=== PATIENT | female | born 1935 | race Caucasian/White ===

== ENCOUNTER 2018-05-15 19:30 | Outpatient (CLI) | payer MEDICARE, BC | END 2018-05-15 19:31 | disposition home or self-care (01) | LOC: SLEEPLAB 19:30 | PROVIDERS: ATTEND Internal Medicine | DX: G47.33 Obstructive sleep apnea (adult) (pediatric) (principal); I50.9 Heart failure, unspecified; E66.9 Obesity, unspecified; Z68.30 Body mass index [BMI] 30.0-30.9, adult | CPT/HCPCS: 95811 ==

== ENCOUNTER 2018-06-22 23:30 | Inpatient (IN) | payer MEDICARE, BC ==
[2018-06-23 00:54] LABS: #Basophils 0.1 thou/uL (0.0-0.2); #Eosinphils 0.1 thou/uL (0.0-0.7); #Lymphocytes 1.1 thou/uL (1.20-3.40); #Monocytes 0.6 thou/uL (0.11-0.59); #Neutrophils 8.6 thou/uL (1.40-6.50); %Basophils 0.6 % (0.0-1.0); %Eosinophils 1.2 % (0.0-10.0); %Lymphocytes 10.3 % (21.0-51.0); %Monocytes 6.1 % (0.0-10.0); %Neutrophils 81.8 % (42.0-75.0); Hemoglobin 14.5 g/dL (12.0-16.0); Mean Corpuscular HGB CONC 31.9 g/dL (32.0-36.0); Mean Corpuscular Hemoglobin 31.8 pg (27.0-31.0); Mean Corpuscular Volume 99.8 fL (78.0-98.0); Mean Platelet Volume 7.8 fL (7.4-10.4); Platelet Count 182 thou/uL (130-400); RBC Distribution Width 12.8 % (11.5-14.5); Red Blood Cell (RBC) Count 4.56 mill/uL (4.20-5.40); White Blood Cell (WBC) Count 10.5 thou/uL (4.8-10.8)
[2018-06-23 01:15] LABS: ALT (SGPT) 20 U/L (8-55); AST (SGOT) 25 U/L (5-34); Albumin 3.4 g/dL (3.4-4.8); Alkaline Phosphatase 126 U/L (40-150); Anion Gap 13 mmol/L (10-20); BUN (Urea Nitrogen) 25 mg/dL (9.8-20.1); Bilirubin, Total Less than 0.2 mg/dL (0.2-1.2); Calc. Creatinine Clearance 0 mL/min (70-130); Calcium 9.7 mg/dL (7.8-10.44); Carbon Dioxide 28 mmol/L (23-31); Chloride 104 mmol/L (98-107); Estimated GFR-MDRD 59; Glucose 157 mg/dL (83-110); Potassium 3.9 mmol/L (3.5-5.1); Protein, Total 6.4 g/dL (6.0-8.3); Sodium 141 mmol/L (136-145)
[2018-06-23 01:27] LABS: CKMB 0.6 ng/mL (0-6.6); Troponin I 0.022 ng/mL (< 0.028)
[2018-06-23] MEDS ORDERED: Aspirin 325 MG TAB ONE (03:00)
[2018-06-23 04:25] LABS: Troponin I 0.029 ng/mL (< 0.028)
[2018-06-23] MEDS ORDERED: Ondansetron ODT 4 MG TAB SL PRN (04:45)
[2018-06-23] MEDS ORDERED: Acetaminophen 325 MG TAB PO PRN (04:45)
[2018-06-23] MEDS ORDERED: Ondansetron PF 4 MG/2 ML Vial IVP PRN ×2 (04:45→07:26)
[2018-06-23 05:54] VITALS: BMI 35.9
[2018-06-23] MEDS ORDERED: Prevnar 13-Val Conj/PF 0.5 ML SYRINGE IM ONE (07:00)
[2018-06-23] MEDS ORDERED: Senokot S 8.6-50 MG TAB PO PRN (07:26)
[2018-06-23] MEDS ORDERED: HumaLOG 300 UNITS/3 ML VIAL SC PRN ×2 (07:26)
[2018-06-23] MEDS ORDERED: Dextrose 5% in Water 1,000 ML IV PRN (07:26)
[2018-06-23] MEDS ORDERED: Dextrose 50% Abboject 50 ML SYRINGE SLOW IVP PRN (07:26)
[2018-06-23] MEDS ORDERED: Bisacodyl 5 MG TAB PO PRN (07:26)
[2018-06-23] MEDS ORDERED: cloNIDine 0.1 MG TAB PO PRN (07:29)
[2018-06-23 08:53] LABS: Troponin I 0.012 ng/mL (< 0.028)
[2018-06-23] MEDS: Famotidine 20 MG TAB PO SCH ×2 (08:59→20:50)
[2018-06-23] MEDS: Enoxaparin Sodium 40 MG/0.4 ML SYRINGE SC SCH (08:59)
[2018-06-23] MEDS ORDERED: Amlodipine 5 MG TAB PO SCH (10:15)
--- NOTE | 2018-06-23 10:26 | HP ---
DATE OF ADMISSION: 06/23/2018 PRIMARY CARE PHYSICIAN: Unknown. The patient reports that she recently moved here to [facility] and does not remember the name of the physician. As per the medical records, Nicole Anderson M.D. is listed as a PCP. CHIEF COMPLAINT: Found slumped over. HISTORY OF PRESENT ILLNESS: Ms. Baker is a very pleasant 83-year-old female with past medical histo ry noted for congestive heart failure, diabetes mellitus type 2 with neuropathy as well as hypothyroi dism and hypertension. She was sent over from [facility] after she was found slumped ov er by the staff. History is mainly obtained by the patient herself and electronic medical records ar e reviewed, which are scant. There is no family at bedside at this time. According to Ms. Baker, she was recently diagnosed with sleep apnea and needs to be on CPAP. This h as been ordered, but she has not had it fitted. She reports that she was just "slumped over the toil et." She denies falling asleep. She denies losing consciousness. She reportedly kept telling the s taff that she feels fine, but they sent her to the emergency room for evaluation. She denies any rec ent illnesses. She has not been having any fever, chills, shortness of breath, chest pain, diarrhea, vomiting, abdominal pain, frequency of urination or dysuria. She is compliant with her medications. Upon presentation to the emergency room, she was hemodynamically stable with blood pressure of 146/62 , pulse of 97, temperature 98.2, not hypoxic. Her initial workup included chest x-ray, which was unr emarkable. Blood work was also unimpressive. She has no leukocytosis. Her serum chemistries are wi thin normal limits with slight elevation of BUN at 25 with normal creatinine. Cardiac enzymes are no rmal. She was given Rocephin in the emergency room for some reason and is now being admitted for fur ther evaluation. Please note that I have reviewed the ER report and I could not find why the Rocephi n was given. No urinalysis was obtained. PAST MEDICAL HISTORY: 1. Hypertension. 2. Congestive heart failure, unknown type. 3. Diabetes mellitus type 2 with neuropathy. 4. Hypothyroidism. 5. Obstructive sleep apnea. PAST SURGICAL HISTORY: 1. Hemorrhoidectomy. 2. Right lump removal from breast. 3. section. 4. History of colostomy for unknown reason, currently none. 5. Hysterectomy. 6. Right knee surgery. PSYCHIATRIC HISTORY: No anxiety or depression. SOCIAL HISTORY: Currently a resident of [facility] where she moved to be closer to her son who lives at [place]. No history of drug, tobacco or alcohol abuse. The patient is larg sergo wheelchair bound and she reports that she has not walked for years. ALLERGIES: No known medication allergies. HOME MEDICATIONS: As below, Glyburide 5 mg daily, multivitamin daily, Aldactone 25 mg daily, primido ne 250 mg p.o. t.i.d., potassium chloride 10 mEq daily, MiraLax daily, Niacin 500 mg p.o. b.i.d., los kwasi 100 mg daily, levothyroxine 50 mcg daily, gabapentin 300 q.i.d., fish oil daily, ferrous glucon ate 240 mg daily, Zetia 10 mg daily, bumetanide 2 mg p.o. b.i.d., aspirin 581 mg daily, amlodipine 2. 5 mg daily, Allopurinol 100 mg daily. FAMILY HISTORY: The patient denies any significant family history of coronary artery disease or stro ke in her family. CODE STATUS: Do not resuscitate or intubate as discussed with the patient. REVIEW OF SYSTEMS: A 12-point review of systems is done. It is negative except for those mentioned in the history and physical. PHYSICAL EXAMINATION: VITAL SIGNS: Most recent vital signs, temperature 97.3, pulse of 62, respirations 18, saturating 94% on 2 liters nasal cannula, blood pressure 131/60 with repeat blood pressure of 107/53. GENERAL: No acute distress, awake, alert, oriented x3. She is just a little bit slow, but I do not appreciate any memory deficits. She follows the commands and answers the questions appropriately. HEENT: Mucous membranes are slightly dry. No oropharyngeal exudate or erythema. Head is normocepha lic, atraumatic. Pupils are equal, reactive to light and accommodation. Extraocular movement intact . NECK: Supple without any lymphadenopathy, JVD or bruit. CHEST: Clear to auscultation without any wheezing, rales or rhonchi. Rate and rhythm is regular wit hout any murmur, rubs or gallops. There is some bibasilar crackles on the right lung. ABDOMEN: Obese, soft, nontender, nondistended with positive bowel sounds. EXTREMITIES: Free of any cyanosis, clubbing, or edema. NEUROLOGIC: Nonfocal. SKIN: Free of any rashes or bruises. I feel warm and dry to touch. IMAGING: Chest x-ray by my review shows some right-sided opacity at the right heart border and cardi omegaly. No infiltrates appreciated. No pulmonary edema. IMPRESSION AND PLAN: 1. Near syncope. The patient denies any syncopal episode. She reports she was awake for all of thi s. The etiology is unclear, but I suspect that given severe sleep apnea and not being fitted with e BiPAP as yet, the patient most likely had an apneic episode or has fallen asleep. At this time, reyes spicion of a TIA is low; however, we will get a carotid Doppler ultrasound and echocardiogram given h er history of congestive heart failure. We will also check a urinalysis to rule out urinary tract in fection though she does not have any symptoms consistent with that. She will be admitted on telemetr y unit and we will monitor her for any arrhythmia and recheck labs in the morning. We will hold her diuretics for today as clinically she appears on the drier tender side and her BUN is also mildly elevated. We will continue to trend serial cardiac enzymes as well. 2. Hypertension, currently well controlled. We will restart her medications with caution. 3. History of congestive heart failure, unknown type. As above, we will restart her diuretics tomor row with caution. Perform an echocardiogram. 4. Sleep apnea. We will start her on BiPAP while she is on the hospital for the nighttime use at [facility] recommended setting by Dr. Anderson in the sleep lab. 5. She will be evaluated by OT, PT and we will arrange home health if appropriate. The patient has been largely bedbound. 6. Diabetes mellitus. We will restart her home medications and add insulin sliding scale and monito r Accu-Cheks a.c. and at bedtime. 7. Chronic deconditioning. 8. CODE STATUS: Do not resuscitate and intubate. 9. Deep venous thrombosis and gastrointestinal prophylaxis. DISPOSITION: Ms. Baker is currently being admitted to the hospital for an unknown episode of what s ounds like near syncope. Estimated length of stay is at least 2-3 midnight needing all the essential workup and monitoring. Further management will depend upon her clinical course.
[2018-06-23] MEDS ORDERED: Potassium Chloride 10 MEQ TAB PO SCH (10:30)
--- NOTE | 2018-06-23 12:00 | RAD ---
PORTABLE CHEST: HISTORY: Syncope. FINDINGS: Heart size is borderline. The aorta is tortuous with atherosclerotic change. The lungs are clear of infiltrates. No signs of failure. IMPRESSION: Mild cardiomegaly. POS: [facility]
[2018-06-23] MEDS: Gabapentin 300 MG CAP PO SCH ×3 (12:37→20:50)
[2018-06-23 13:17] LABS: Bilirubin Negative (Negative); Blood, Urine Negative (Negative); Clarity CLOUDY (Clear); Glucose, Urine (Dipstick) Negative (Negative); Leukocyte Small (Negative); Nitrite Negative (Negative); Protein, Urine (Dipstick) Negative (Neg-Trace); Specific Gravity, Urine 1.026 (1.002-1.036); Urobilinogen 0.2 mg/dL (0.2-1.0); pH, Urine 5.5 (5.0-9.0)
[2018-06-23 13:22] LABS: Hyaline Casts/LPF 0-3 HYALINE CAST LPF (0-3 Hyaline); Pathc Cast-AUWi Flag 0.43 (0-2.49)
[2018-06-23 13:40] LABS: Bacteria/HPF 2+ HPF (None Seen); RBC/HPF 0-3 HPF (0-3)
[2018-06-23] MEDS: Primidone 250 MG TAB PO SCH ×2 (15:57→20:49)
[2018-06-23] MEDS: cefTRIAXone\\ROCEPHIN 1 GM in Sodium Chloride 0.9% 100 ML IVPB SCH (15:57)
--- NOTE | 2018-06-23 16:02 | ULT ---
BILATERAL CAROTID DUPLEX ULTRASOUND: 06/23/18 HISTORY: Syncope. Real time imaging of the right and left carotid systems was performed. This shows some calcified plaq ue formation in both the internal carotid arteries. On the right side, peak systolic velocities of the common carotid were 64 cm/s. Internal carotid velo [place] 70 cm/s. External carotid velocities 90 cm/s. On the left side, peak systolic velocities of the common carotid were 73 cm/s. Internal carotid veloc ities 94 cm/s. External carotid velocities 100 cm/s. Vertebral flow is antegrade bilaterally. IMPRESSION: No evidence of hemodynamically significant stenosis of either internal carotid artery. POS: [facility]
[2018-06-23] MEDS: Bumetanide 1 MG TAB PO SCH (16:54)
[2018-06-23] MEDS: Niacin 500 MG TAB PO SCH (20:49)
[2018-06-23] MEDS ORDERED: Non-Formulary Item 1 EACH (Bumetanide [Bumetanide] 2 MG) PO SCH (21:00)
[2018-06-23] MEDS: Acetaminophen 325 MG TAB PO PRN (22:11)
[2018-06-24 05:39] LABS: #Basophils 0.1 thou/uL (0.0-0.2); #Eosinphils 0.3 thou/uL (0.0-0.7); #Lymphocytes 1.5 thou/uL (1.20-3.40); #Monocytes 0.5 thou/uL (0.11-0.59); #Neutrophils 3.1 thou/uL (1.40-6.50); %Eosinophils 5.3 % (0.0-10.0); %Lymphocytes 27.6 % (21.0-51.0); %Monocytes 9.6 % (0.0-10.0); %Neutrophils 56.6 % (42.0-75.0); Hemoglobin 13.2 g/dL (12.0-16.0); Mean Corpuscular HGB CONC 32.3 g/dL (32.0-36.0); Mean Corpuscular Hemoglobin 32.1 pg (27.0-31.0); Mean Corpuscular Volume 99.2 fL (78.0-98.0); Mean Platelet Volume 7.8 fL (7.4-10.4); Platelet Count 156 thou/uL (130-400); RBC Distribution Width 12.7 % (11.5-14.5); Red Blood Cell (RBC) Count 4.11 mill/uL (4.20-5.40); White Blood Cell (WBC) Count 5.4 thou/uL (4.8-10.8)
[2018-06-24 05:51] LABS: Anion Gap 11 mmol/L (10-20); BUN (Urea Nitrogen) 21 mg/dL (9.8-20.1); Calc. Creatinine Clearance 94 mL/min (70-130); Calcium 9.8 mg/dL (7.8-10.44); Carbon Dioxide 31 mmol/L (23-31); Chloride 101 mmol/L (98-107); Estimated GFR-MDRD 80; Glucose 88 mg/dL (83-110); Sodium 139 mmol/L (136-145)
[2018-06-24] MEDS ORDERED: Losartan 25 MG TAB PO SCH (09:00)
[2018-06-24] MEDS ORDERED: Aspirin 81 mg Enteric Coated Tablet PO SCH (09:00)
[2018-06-24] MEDS ORDERED: GLUCOSAMINE CHONDROITIN PO SCH (09:00)
[2018-06-24] MEDS: Bumetanide 1 MG TAB PO SCH ×2 (09:09→15:45)
[2018-06-24] MEDS: Allopurinol 100 MG TAB PO SCH (09:10)
[2018-06-24] MEDS: Amlodipine 5 MG TAB PO SCH (09:10)
[2018-06-24] MEDS: Enoxaparin Sodium 40 MG/0.4 ML SYRINGE SC SCH (09:12)
[2018-06-24] MEDS: Famotidine 20 MG TAB PO SCH ×2 (09:12→20:41)
[2018-06-24] MEDS: Ezetimibe 10 MG TAB PO SCH (09:12)
[2018-06-24] MEDS: Fish Oil 1,000 MG CAP PO SCH (09:13)
[2018-06-24] MEDS: Levothyroxine Sodium 50 MCG TAB PO SCH (09:13)
[2018-06-24] MEDS: Ferrous Gluconate 324 MG TAB PO SCH (09:13)
[2018-06-24] MEDS: glyBURIDE 5 MG TAB PO SCH (09:13)
[2018-06-24] MEDS: Niacin 500 MG TAB PO SCH ×2 (09:13→20:41)
[2018-06-24] MEDS: Gabapentin 300 MG CAP PO SCH ×4 (09:13→20:41)
[2018-06-24] MEDS: Vit A,C & E/Lutein/Minerals Tablet PO SCH (09:14)
[2018-06-24] MEDS: Primidone 250 MG TAB PO SCH ×3 (09:14→20:41)
[2018-06-24] MEDS: Spironolactone 25 MG TAB PO SCH (09:14)
[2018-06-24] MEDS: Potassium Chloride 10 MEQ TAB PO SCH (09:14)
[2018-06-24] MEDS: Losartan 25 MG TAB PO SCH (09:59)
[2018-06-24] MEDS: Polyethylene Glycol 3350 17 GM Packet PO SCH (09:59)
--- NOTE | 2018-06-24 11:02 | PDOC.PN ---
- Subjective Encounter Start Date: 06/24/18 Encounter Start Time: 11:00 Subjective: feels OK but weak and has b.l shoulder pain & Headache - Objective Resuscitation Status: Resuscitation Status DNR:Do Not Resuscitate MAR Reviewed: Yes Vital Signs & Weight: Vital Signs (12 hours) Temp Pulse Resp BP BP Pulse Ox 06/24/18 09:10 65 125/72 06/24/18 07:35 97.9 F 65 18 125/72 94 L 06/24/18 03:35 97.3 F L 68 19 129/61 93 L Weight Weight 221 lb 2.995 oz I&O: 06/23/18 06/24/18 06/25/18 07:59 06:59 06:59 Intake Total Output Total Balance Result Diagrams: 06/24/18 04:32 06/24/18 04:32 Additional Labs: Accuchecks 06/24/18 06/23/18 06/23/18 05:26 20:07 17:17 POC Glucose 87 128 H 82 Microbiology 06/23/18 15:39 Venous blood - Left Hand Blood Culture - Preliminary Specimen has been received and culture in progress. No Growth to date. 06/23/18 15:29 Venous blood - Left Arm Blood Culture - Preliminary Specimen has been received and culture in progress. No Growth to date. 06/23/18 12:50 Urine voided Urine Culture - Preliminary Alpha-Hemolytic Streptococcus Laboratory Tests 06/23/18 06/23/18 06/23/18 00:43 00:44 03:43 BUN 25 H Creatinine 0.91 Troponin I 0.022 0.029 H B-Natriuretic Peptide 06/23/18 06/23/18 06/24/18 07:25 07:39 04:32 BUN 21 H Creatinine 0.70 Troponin I 0.012 B-Natriuretic Peptide 105.8 H Phys Exam - Physical Examination Constitutional: NAD HEENT: PERRLA, moist MMs, sclera anicteric, oral pharynx no lesions Neck: no nodes, no JVD, supple, full ROM Respiratory: no wheezing, no rales, no rhonchi, clear to auscultation bilateral Cardiovascular: RRR, no significant murmur, no rub Gastrointestinal: soft, non-tender, no distention, positive bowel sounds Musculoskeletal: no edema, pulses present Neurological: non-focal, normal sensation, moves all 4 limbs Psychiatric: normal affect, A&O x 3 Skin: no rash Dx/Plan (1) UTI (urinary tract infection) Status: Acute Qualifiers: Hematuria presence: without hematuria (2) Near syncope Status: Acute (3) XENIA (obstructive sleep apnea) Code(s): G47.33 - OBSTRUCTIVE SLEEP APNEA (ADULT) (PEDIATRIC) Status: Chronic Comment: Bipap HS (4) HTN (hypertension) Code(s): I10 - ESSENTIAL (PRIMARY) HYPERTENSION Status: Chronic - Plan continue antibiotics, PT/OT, out of bed/ambulate, DVT proph w/SCDs Cont empiric ABx. follow final Cx results -: HD stable. Home meds >change ASA to 81 .pt does not take 525mg -: OT/PT.SNIf eval for [place]. -: likely DC in next 24 hours. -: no arrythmia on tele * . Review of Systems - Review of Systems Constitutional: weakness, malaise. negative: fever, chills, sweats, other Cardiovascular: negative: chest pain, palpitations, orthopnea, paroxysmal nocturnal dyspnea, edema, light headedness, other Gastrointestinal: negative: Nausea, Vomiting, Abdominal Pain, Diarrhea, Constipation, Melena, Hematochezia, Other Genitourinary: negative: Dysuria, Frequency, Incontinence, Hematuria, Retention , Other Musculoskeletal: Shoulder Pain. negative: Neck Pain, Arm Pain, Back Pain, Hand Pain, Leg Pain, Foot Pain, Other Skin: negative: Rash, Lesions, Laureano, Bruising, Other Neurological: negative: Weakness, Numbness, Incoordination, Change in Speech, Confusion, Seizures, Other - Medications/Allergies Allergies/Adverse Reactions: Allergies Allergy/AdvReac Type Severity Reaction Status Date / Time No Known Allergies Allergy Verified 06/23/18 05:39 Medications: Current Medications Acetaminophen (Tylenol) 650 mg PO Q4H PRN PRN Reason: Headache/Fever/Mild Pain (1-3) Last Admin: 06/23/18 22:11 Dose: 650 mg Allopurinol (Zyloprim) 100 mg PO DAILY [facility] Last Admin: 06/24/18 09:10 Dose: 100 mg Amlodipine Besylate (Norvasc) 2.5 mg PO DAILY [facility] Last Admin: 06/24/18 09:10 Dose: 2.5 mg Aspirin (Ecotrin) 567 mg PO DAILY [facility] Bisacodyl (Dulcolax) 10 mg PO DAILYPRN PRN PRN Reason: Constipation Bumetanide (Bumex) 2 mg PO BID-AC [facility] Last Admin: 06/24/18 09:09 Dose: 2 mg Cholecalciferol (Vitamin D3) 2,000 units PO BID [facility] Last Admin: 06/24/18 09:11 Dose: 2,000 units Clonidine (Catapres) 0.1 mg PO Q4H PRN PRN Reason: SBP>160 Dextrose/Water (Dextrose 50%) 25 gm SLOW IVP PRN PRN PRN Reason: Hypoglycemia Ezetimibe (Zetia) 10 mg PO DAILY [facility] Last Admin: 06/24/18 09:12 Dose: 10 mg Enoxaparin Sodium (Lovenox) 40 mg SC 0900 [facility] Last Admin: 06/24/18 09:12 Dose: 40 mg Famotidine (Pepcid) 20 mg PO BID [facility] Last Admin: 06/24/18 09:12 Dose: 20 mg Ferrous Gluconate (Fergon) 324 mg PO DAILY [facility] Last Admin: 06/24/18 09:13 Dose: 324 mg Fish Oil (Fish Oil) 1,000 mg PO DAILY [facility] Last Admin: 06/24/18 09:13 Dose: 1,000 mg Gabapentin (Neurontin) 300 mg PO QID [facility] Last Admin: 06/24/18 09:13 Dose: 300 mg Glucagon (Glucagon) 1 mg IM PRN PRN PRN Reason: Hypoglycemia Glyburide (Diabeta) 5 mg PO DAILY [facility] Last Admin: 06/24/18 09:13 Dose: 5 mg Dextrose/Water (D5w) 1,000 mls @ 0 mls/hr IV .Q0M PRN PRN Reason: Hypoglycemia Ceftriaxone Sodium 1 gm/ (Sodium Chloride) 100 mls @ 200 mls/hr IVPB 1600 [facility] Last Admin: 06/23/18 15:57 Dose: 100 mls Insulin Human Lispro (Humalog) 0 units SC .MODERATE SLIDING SC PRN PRN Reason: Moderate Correctional Scale Insulin Human Lispro (Humalog) 0 units SC .BEDTIME SLIDING SC PRN PRN Reason: Bedtime Correctional Scale Levothyroxine Sodium (Synthroid) 50 mcg PO DAILY [facility] Last Admin: 06/24/18 09:13 Dose: 50 mcg Losartan Potassium (Cozaar) 100 mg PO DAILY [facility] Last Admin: 06/24/18 09:59 Dose: 100 mg Multivitamins/Minerals (Ocuvite With Lutein) 1 tab PO DAILY [facility] Last Admin: 06/24/18 09:14 Dose: 1 tab Niacin (Niacin) 500 mg PO BID [facility] Last Admin: 06/24/18 09:13 Dose: 500 mg Ondansetron HCl (Zofran) 4 mg IVP Q6H PRN PRN Reason: Nausea/Vomiting Polyethylene Glycol (Miralax) 17 gm PO DAILY [facility] Last Admin: 06/24/18 09:59 Dose: 17 gm Potassium Chloride (Klor-Con 10) 10 meq PO DAILY [facility] Last Admin: 06/24/18 09:14 Dose: 10 meq Primidone (Mysoline) 250 mg PO TID [facility] Last Admin: 06/24/18 09:14 Dose: 250 mg Senna/Docusate Sodium (Senokot S) 2 tab PO BID PRN PRN Reason: Constipation Spironolactone (Aldactone) 25 mg PO DAILY [facility] Last Admin: 06/24/18 09:14 Dose: 25 mg
[2018-06-24] MEDS: cefTRIAXone\\ROCEPHIN 1 GM in Sodium Chloride 0.9% 100 ML IVPB SCH (15:45)
[2018-06-24] MEDS: Acetaminophen 325 MG TAB PO PRN (20:45)
[2018-06-25] MEDS: Bumetanide 1 MG TAB PO SCH (09:30)
[2018-06-25] MEDS: Amlodipine 5 MG TAB PO SCH (09:31)
[2018-06-25] MEDS: Allopurinol 100 MG TAB PO SCH (09:31)
[2018-06-25] MEDS: Enoxaparin Sodium 40 MG/0.4 ML SYRINGE SC SCH (09:33)
[2018-06-25] MEDS: Gabapentin 300 MG CAP PO SCH (09:34)
[2018-06-25] MEDS: glyBURIDE 5 MG TAB PO SCH (09:34)
[2018-06-25] MEDS: Ferrous Gluconate 324 MG TAB PO SCH (09:34)
[2018-06-25] MEDS: Fish Oil 1,000 MG CAP PO SCH (09:34)
[2018-06-25] MEDS: Polyethylene Glycol 3350 17 GM Packet PO SCH (09:35)
[2018-06-25] MEDS: Niacin 500 MG TAB PO SCH (09:35)
[2018-06-25] MEDS: Losartan 25 MG TAB PO SCH (09:35)
[2018-06-25] MEDS: Primidone 250 MG TAB PO SCH (09:36)
[2018-06-25] MEDS: Potassium Chloride 10 MEQ TAB PO SCH (09:36)
[2018-06-25] MEDS: Spironolactone 25 MG TAB PO SCH (09:36)
[2018-06-25] MEDS: Famotidine 20 MG TAB PO SCH (09:39)
[2018-06-25] MEDS: Vit A,C & E/Lutein/Minerals Tablet PO SCH (09:39)
[2018-06-25] MEDS: Ezetimibe 10 MG TAB PO SCH (09:40)
[2018-06-25] MEDS: Levothyroxine Sodium 50 MCG TAB PO SCH (09:40)
[2018-06-25] MEDS: cefTRIAXone\\ROCEPHIN 1 GM in Sodium Chloride 0.9% 100 ML IVPB SCH (11:17)
[2018-06-25 11:26] VITALS: BP 148/66; TEMP 98.1
--- NOTE | 2018-06-25 14:38 | DIS ---
DATE OF ADMISSION: 06/23/2018 DATE OF DISCHARGE: 06/25/2018 CONDITION AT THE TIME OF DISCHARGE: Stable and improved. DISCHARGE DISPOSITION: Back to [facility] with standard home health. PRIMARY CARE PHYSICIAN: Nicole Anderson M.D. DISCHARGE DIAGNOSES: 1. Urinary tract infection. 2. Near syncope. 3. Obstructive sleep apnea with intolerance of BiPAP. 4. Hypertension. 5. Urinary tract infection status post 3 days of IV antibiotics with culture negative so far. DISCHARGE MEDICATIONS: Resume home medications as per the HPI. Please see HPI dictated by myself fo r the complete list. PROCEDURES DONE IN THE HOSPITAL: 1. Carotid Doppler ultrasound, which is negative for any hemodynamically significant stenosis bilate rally. 2. Transthoracic echocardiogram, which shows preserved ejection fraction of 55-60% and diastolic dys function. HISTORY: Ms. Baker is a very pleasant 83-year-old female with past medical history of new diagnosis of obstructive sleep apnea as well as hypertension and chronic congestive heart failure and diabetes who presented to the emergency room after the [facility] nursing staff found her slumped over on the toilet. At the time of presentation, the patient was hemodynamically stable. Initial workup includ ing the chest x-ray and serum chemistries were unremarkable. She was admitted on telemetry for [facility] er evaluation. There was no history of syncope as per the patient. She is essentially bedbound and moves around in a wheelchair or a mechanical lift for movements. HOSPITAL COURSE: The patient remained hemodynamically throughout her hospitalization without any guillermina dence of syncope or near syncope. Her blood pressure was within normal limits. Serial cardiac enzym es were trended and remained unremarkable. Her serum chemistries were followed and were unremarkable . She underwent carotid Doppler and transthoracic echo which had normal results as well. Urinalysis has had +2 bacteria and it was sent for culture along with the blood culture. She received 3 days o f IV Rocephin in the hospital and it was discontinued when the culture results came back negative. As of this morning, the patient has no acute changes or medical necessity for the hospitalization. S he is at her baseline and will be discharged back to [facility] with standard home health. Physical therapy has evaluated the patient and they have discharged her as she cannot participate in physical therapy. She was seen and examined prior to discharge. PHYSICAL EXAMINATION: VITAL SIGNS: Temperature 98.1, pulse of 67, respirations 18, saturating 94% on 2 liters nasal cannul a, blood pressure 146/66. GENERAL: No acute distress. CHEST: Clear to auscultation bilaterally. HEART: Rate and rhythm is regular. Discharge plan was discussed with the patient who verbalized understanding. It was emphasized that s he [facility] as instructed on outpatient sleep study. She will be tried again on a lower setting for tolerance. I believe her symptoms are daytime sleepiness because of exc essive sleep apnea as a cardiac and neurological workup has been unremarkable during this hospitaliza tion. Time spent in the discharge of this patient 32 minutes.
== END 2018-06-25 12:47 | disposition home health service (06) | DRG 690 ==
LOC: ERS 23:30 → 2NO 06-23 04:25
PROVIDERS: ADMIT Internal Medicine; ATTEND Internal Medicine
DX: N39.0 Urinary tract infection, site not specified (principal); G47.33 Obstructive sleep apnea (adult) (pediatric); R55 Syncope and collapse; E11.40 Type 2 diabetes mellitus with diabetic neuropathy, unspecified; I11.0 Hypertensive heart disease with heart failure; I50.9 Heart failure, unspecified; E03.9 Hypothyroidism, unspecified; Z66 Do not resuscitate; Z99.3 Dependence on wheelchair; Z79.84 Long term (current) use of oral hypoglycemic drugs; Z79.82 Long term (current) use of aspirin
CPT/HCPCS: 36415; 36416; 51701; 71045; 80048; 80053; 81003; 81015; 82553; 83880; 84484; 85025; 87040; 87086; 90471; 90670; 93005; 93306; 93880; A4353; G0009; G8978-GP-CN; G8979-GP-CN; G8980-GP-CN; G8987-GO-CM; G8988-GO-CM; G8989-GO-CM; J0696; J1650; J7050

== ENCOUNTER 2018-07-30 12:39 | Emergency (ER) | payer MEDICARE, BC ==
[2018-07-30 13:42] LABS: #Eosinphils 0.5 thou/uL (0.0-0.7); #Lymphocytes 1.2 thou/uL (1.20-3.40); #Monocytes 0.5 thou/uL (0.11-0.59); #Neutrophils 3.2 thou/uL (1.40-6.50); %Basophils 0.8 % (0.0-1.0); %Lymphocytes 22.9 % (21.0-51.0); %Monocytes 8.4 % (0.0-10.0); Hemoglobin 14.5 g/dL (12.0-16.0); Mean Corpuscular HGB CONC 32.2 g/dL (32.0-36.0); Mean Corpuscular Hemoglobin 32.4 pg (27.0-31.0); Mean Platelet Volume 7.1 fL (7.4-10.4); Platelet Count 214 thou/uL (130-400); RBC Distribution Width 12.4 % (11.5-14.5); Red Blood Cell (RBC) Count 4.47 mill/uL (4.20-5.40); White Blood Cell (WBC) Count 5.4 thou/uL (4.8-10.8)
[2018-07-30 14:09] LABS: ALT (SGPT) 18 U/L (8-55); AST (SGOT) 21 U/L (5-34); Albumin 3.1 g/dL (3.4-4.8); Alkaline Phosphatase 118 U/L (40-150); Anion Gap 10 mmol/L (10-20); BUN (Urea Nitrogen) 21 mg/dL (9.8-20.1); Bilirubin, Total 0.3 mg/dL (0.2-1.2); Calc. Creatinine Clearance 0 mL/min (70-130); Calcium 10.5 mg/dL (7.8-10.44); Carbon Dioxide 33 mmol/L (23-31); Chloride 101 mmol/L (98-107); Estimated GFR-MDRD 80; Globulin 3.2 g/dL (2.4-3.5); Glucose 101 mg/dL (83-110); Lipase 25 U/L (8-78); Protein, Total 6.3 g/dL (6.0-8.3); Sodium 140 mmol/L (136-145)
[2018-07-30 15:11] LABS: Bilirubin Negative (Negative); Blood, Urine Moderate (Negative); Clarity TURBID (Clear); Glucose, Urine (Dipstick) Negative (Negative); Leukocyte Large (Negative); Nitrite Negative (Negative); Protein, Urine (Dipstick) 30 mg/dL (Neg-Trace); Specific Gravity, Urine 1.013 (1.002-1.036); Urobilinogen 0.2 mg/dL (0.2-1.0); pH, Urine 7.5 (5.0-9.0)
[2018-07-30 15:15] LABS: Hyaline Casts/LPF 7-10 HYALINE CAST LPF (0-3 Hyaline)
[2018-07-30 15:17] LABS: Pathc Cast-AUWi Flag 3.13 (0-2.49); Yeast-AUWi Flag 13057.3 (0-25.0)
[2018-07-30 15:33] LABS: Bacteria/HPF 2+ HPF (None Seen); Crystals/HPF 1+ AMORPH URATES HPF (Negative); Manual Microscopic Reviewed? No Path Casts Seen; RBC/HPF 0-3 HPF (0-3); Yeast-All Forms None Seen HPF (None Seen)
[2018-07-30] MEDS ORDERED: cefTRIAXone\\ROCEPHIN 1 GM VIAL ONE (15:54)
--- NOTE | 2018-08-01 15:10 | EKG ---
Test Reason : WEAKNESS Blood Pressure : / mmHG Vent. Rate : 058 BPM Atrial Rate : 058 BPM P-R Int : 186 ms QRS Dur : 090 ms QT Int : 390 ms P-R-T Axes : 036 019 056 degrees QTc Int : 382 ms Sinus bradycardia Nonspecific T wave abnormality Abnormal ECG Confirmed by LORIE ERICKSON ([id number]), clinical editor CHARLIE FLETCHER ([id number] on 08/01/2018 3:09:47 PM Referred By: Confirmed By:LORIE EIRCKSON
== END 2018-07-30 17:25 ==
LOC: ERS 12:39
DX: N39.0 Urinary tract infection, site not specified (principal); G89.29 Other chronic pain; M25.562 Pain in left knee; I11.0 Hypertensive heart disease with heart failure; I50.9 Heart failure, unspecified; E11.40 Type 2 diabetes mellitus with diabetic neuropathy, unspecified; E03.9 Hypothyroidism, unspecified; Z79.899 Other long term (current) drug therapy
CPT/HCPCS: 36415; 51701; 80053; 81003; 81015; 83690; 84484; 85025; 87086; 93005; 96365; A4353; J0696

== ENCOUNTER 2018-07-31 13:48 | Emergency (ER) | payer MEDICARE, BC ==
[2018-07-31] MEDS ORDERED: Lidocaine 1% PF 5 ML VIAL ONE (14:38)
[2018-07-31] MEDS ORDERED: cefTRIAXone\\ROCEPHIN 1 GM VIAL ONE (14:38)
--- NOTE | 2018-07-31 15:51 | RAD ---
PORTABLE AP CHEST: Date: 07/31/18 HISTORY: Dyspnea. COMPARISON: 06/23/18. FINDINGS: Cardiac silhouette is magnified by projection. There are scattered linear densities in the lungs bila terally, greater in the mid lung zones, probably related to either mild scarring and/or atelectasis. Calcified granuloma is again seen overlying the lateral right mid lung zone. Lungs are otherwise evelyn r. Cardiac silhouette and pulmonary vasculature are within normal limits for the portable technique o f the study. Vascular calcifications are seen in the thoracic aorta. Osteopenia is present. Degenerat alfonso changes are noted in the spine. IMPRESSION: Scattered linear areas of atelectasis and/or scarring. There is no acute cardiopulmonary process pres ent. POS: [facility]
[2018-07-31] MEDS ORDERED: Acetaminophen 500 MG TAB ONE (17:52)
--- NOTE | 2018-07-31 21:06 | CT ---
BRAIN CT WITHOUT IV CONTRAST: 07/31/18 HISTORY: 83-year-old female with history of headache. No focal mass or midline shift. There is some atrophy and chronic white matter ischemic change. No in tra or extra-axial hemorrhage. IMPRESSION: Atrophy and chronic white matter ischemic change. No mass or bleed or other acute process. POS: [facility]
== END 2018-07-31 20:46 ==
LOC: ERS 13:48
DX: R00.1 Bradycardia, unspecified (principal); R51 Headache; E11.40 Type 2 diabetes mellitus with diabetic neuropathy, unspecified; E03.9 Hypothyroidism, unspecified; I11.0 Hypertensive heart disease with heart failure; I50.9 Heart failure, unspecified; Z79.82 Long term (current) use of aspirin; Z79.899 Other long term (current) drug therapy
CPT/HCPCS: 70450; 71045; 96372; J0696; J2001